=== PATIENT | female | born 1980 | race Caucasian/White ===

== ENCOUNTER → 2017-07-01 | Outpatient (CLI) | payer OTHER ==
[~2017-07-01] MED LIST: ADDERALL XR 1010 MG PO; ADDERALL XR 2020 MG PO; ADIPEX-P37.5 M1 PO; AMITRIPTYLINE H10 M3 PO; ANAPROX; CONTRAVE ER 8-1 EACH PO; FLEXERIL PO; GENTAMICIN SU3 MG/ML OP; MEDROLDOSEPACK PO; MOBIC15 MG PO; NAPROSYN375 MG PO; NOHOMEMEDICATIONS; NORCO 5-325 TA1 EACH PO; ORTHO TRI-CYCL1 EACH PO; TOPAMAX 25 MG T25 M1 PO; WELLBUTRIN SR100 MG PO; muscle relaxer
--- NOTE | 2017-08-04 08:22 | PAINCON ---
[address] [address] PAIN MANAGEMENT CONSULTATION Name: OBDULIORAMON Ruano Room: [facility]#: [id number] Admission: 07/01/17 Attend Phys: Armando Mcpherson MD Discharge: Date of : 76 Report #: [id number] THIS REPORT FOR: //name// CC: ANNA Mcpherson DATE OF SERVICE: 07/01/2017 CHIEF COMPLAINT: "Pain in the low back and down my right leg." HISTORY OF PRESENT ILLNESS: The patient is a 36-year-old female who has been referred to the pain clinic for evaluation of back and leg pain. The patient noticed that her pain has been problematic since approximately 2010. Pain has waxed and waned. At this juncture, she is having pain and discomfort, which is radiating down her right leg. She notes that her leg has some weakness in this area as well as numbness in the top of her foot. She denies any significant trauma in the past. She rates her pain as a 4/10. Notes that it impacts ability to engage in activities. Prolonged walking, moving and activities of daily living can cause worsening of her pain with pain radiating down to her right leg involving her foot, which is numb. States that the numbness in her foot has continued to remain for some time. Has used Naprosyn and Flexeril. She is not taking the Flexeril secondary to increased somnolence effects with its use. She is not taking Naprosyn at this juncture. Has difficulty with performing activities as well as walking. Describes her discomfort as constant, burning, cramping, aching, pulling, sharp and stabbing. Denies any bowel or bladder dysfunction. 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 States that she used to wear high heel shoes. She is unable to wear them and has not worn them for the last greater than the last month because of this chronic pain that she is experiencing. ALLERGIES: No known drug allergies. CURRENT MEDICATIONS: Adderall-XR 20 mg capsules, Adderall-XR 10 mg capsules daily, total dose 30 mg. Wellbutrin-SR 100 mg b.i.d., Contrave ER, naloxone, hydrochloride/bupropion q.12h., Topamax 25 mg b.i.d. PAST MEDICAL HISTORY: 1. Low back pain with radiculopathy involving the right leg. 2. Depression. 3. Obesity, BMI 30-39, takes Contrave 1 p.o. b.i.d. 4. Anxiety. 5. Attention deficit disorder. PAST SURGICAL HISTORY: Breast reduction 2000[place] [address] PAIN MANAGEMENT CONSULTATION Name: VISHNURAMON RAMIREZ Alden Room: [facility]#: [id number] Admission: 07/01/17 Attend Phys: Armando Mcpherson MD Discharge: Date of : 76 Report #: [id number] SOCIAL HISTORY: She is working as a real estate loan processor. Denies use of tobacco. Drinks alcoholic beverages about 1 beverage per week. She is . She has never smoked. PAIN CLINIC ASSESSMENT: 1. History of osteoarthritis: None. 2. History of rheumatoid arthritis: None. 3. Height 5 feet 6 inches, weight 174 pounds, BMI is 38. 4. Vital signs: Blood pressure 102/65, pulse is 77, respiratory rate 16, room air saturation is 97%, temperature 98.7. 5. Pain intensity 09/07. 6. Fall risk: No problem with dizziness, no problem with falling in the last 3 months. No need help standing. 7. The patient is not on blood thinners. 8. History of hypertension: The patient is not being treated for hypertension. 9. Opioid therapy greater than 6 weeks: The patient has not been on opioid therapy for greater than 6 weeks. 10. Risk assessment tool/pain impact score: The patient rates 46 on evaluation of general activity, mood, walking ability, relationships with others, sleep and enjoyment of life. 11. Recreational drugs: Never. Denies use of tobacco ever. REVIEW OF SYSTEMS: A 14-point reveals generally good health, some weight change, fatigue, weakness, wears glasses, otherwise unremarkable. PHYSICAL EXAMINATION: GENERAL: The patient is a well-developed, well-nourished female. Appearance is appropriate, and appears her stated age. Oriented x3, alert. Affect is appropriate. HEENT: Unremarkable. No head trauma. Hearing is good. Eyes, accommodation and eye muscles intact. Nonicteric sclerae. Moist buccal membranes. No nasal complaints. NECK: Without JVD, adenopathy, or bruits. LUNGS: Clear to auscultation. HEART: Regular rate, normal S1, S2. ABDOMEN: Nontender. MUSCULOSKELETAL: Appearance is normal without evidence of scoliosis, kyphosis or lordosis. Gait is within normal limits. BACK EXAMINATION: Flexion to 60 degrees. Some low back discomfort. Lumbar extension, left and right lateral rotation causes some discomfort in the right lower buttocks area. Lateral bending not very problematic. Upper muscle strength is judged to be 5/5 in the upper muscle extremities. Sensation to light touch and pinprick are within normal limits. Lower extremities examination, right leg, right straight leg raise is positive. The patient has some pain, which radiates down the left lower buttocks in the L4-L[place] [address] PAIN MANAGEMENT CONSULTATION Name: RAMON MAK Room: [facility]#: [id number] Admission: 07/01/17 Attend Phys: Armando Mcpherson MD Discharge: Date of : 76 Report #: [id number] with pain down into the calf and numbness in the dorsum of her foot. Anterior spring test is negative. Posterior spring test is negative. Michael's test is negative. No clonus is noted. Deep tendon reflexes are +1 on the left and right. No significant edema is noted in the lower extremities. LABORATORY DATA: MRI of the lumbar spine dated 05/21/2017, reveals: 1. L4-L5 disk desiccation with normal disk height and mild circumferential disk bulge, which abuts the thecal sac anteriorly. Mild bilateral facet arthropathy. The findings produce mild bilateral neural foraminal stenosis without significant central canal stenosis or nerve root compression identified. An annular fissure is suggested anteriorly at the sagittal T2 weighted image #7. 2. L5-S1 disk desiccation with mild disk height loss with a mild circumferential disk bulge, which abuts the thecal sac anteriorly. There is bilateral foraminal components to the disk bulge along with mild bilateral facet arthropathy. The intervertebral disk appear normal from T11/T12 through the L3-L4 levels. No acute compression fracture is identified through T10 down to L5. IMPRESSION: 1. L4-L5 lumbar radicular symptomatology with numbness, weakness involving the right L5-S1 distribution with numbness over the dorsum of her foot. 2. Major depressive disorder. 3. Obesity, BMI is 30-39. 4. History of migraines. 5. Anxiety. 6. Insulin resistance syndrome. 7. Attention deficit disorder. RECOMMENDATIONS: We discussed treatment options with the patient. Risks and benefits of an epidural steroid injection were discussed. The patient brought her MRI disc. It was placed on the computer and we discussed the ramifications of findings. Possible complication of an epidural steroid injection, which could include infection, increased muscle soreness, headache, bleeding, nerve trauma were reviewed. The patient feels that she would like to proceed with an epidural steroid injection. She will return to the pain clinic after she has been precerted by her insurance company. At that time, we will proceed with an epidural steroid injection. The patient's questions were answered. She will continue her medications prescribed by her primary physician. We would like to thank you for letting us participate in her care. We hope she continues to improve. <ELECTRONICALLY SIGNED> By: Armando Mcpehrson MD 08/04/17 0822 [id number]. Joel Mcpherson MD /nt
== END ==
LOC: M.PC 06-10 10:30
DX: M54.16 Radiculopathy, lumbar region (principal); F32.9 Major depressive disorder, single episode, unspecified; E66.9 Obesity, unspecified; F41.9 Anxiety disorder, unspecified; F98.8 Other specified behavioral and emotional disorders with onset usually occurring in childhood and adolescence; Z68.30 Body mass index [BMI] 30.0-30.9, adult

== ENCOUNTER → 2017-07-08 | Outpatient (CLI) | payer OTHER ==
--- NOTE | 2017-08-04 08:26 | PAINCON ---
[address] [address] PAIN MANAGEMENT CONSULTATION Name: VISHNUJAMESRAMON Ruano [id number] Admission: 07/08/17 Attend Phys: Armando Mcpherson MD Discharge: Date of : 76 Report #: [id number] THIS REPORT FOR: //name// CC: Clark Mcpherson DATE OF SERVICE: 07/13/2017 FOLLOWUP COMPLAINT: Here for the epidural steroid injection. FOLLOWUP HISTORY: The patient is a 36-year-old female who has been seen in the Pain Clinic because of back and leg pain. She has had pain, which has been problematic since 2010. She notes that her pain had become more problematic over the last few weeks. It has waxed and waned in the interim. At this juncture, she is having more pain and discomfort, which is radiating down into her right leg. She notes some weakness in this area as well as numbness on the top of her foot. She denies any new changes since we saw her last. She notes that prolonged walking, moving and activities of daily living worsen her pain and discomfort with radiation down into her right leg and involving the dorsum of her foot. Denies any bowel or bladder dysfunction at this juncture. Continues to describe her discomfort as burning, cramping, aching, prolonged pulling, sharp and stabbing. 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 ALLERGIES: No known drug allergies. CURRENT MEDICATIONS: Continue to be Adderall-XR 20 mg, Adderall-XR 10 mg capsules daily; total dose of 30 mg, Wellbutrin-SR 100 mg b.i.d., Contrave ER, naloxone, hydrochlorothiazide/bupropion q.12 hours, and Topamax 25 mg b.i.d. PAST MEDICAL HISTORY: 1. Low back pain with radiation down to the right leg 2. History of depression. 3. Obesity, BMI of 30-39, takes Contrave 1 p.o. b.i.d. for this. 4. Anxiety. 5. Attention deficit disorder. PHYSICAL EXAMINATION: GENERAL: The patient is a well-developed female with no distress. Appearance, appropriate for age. The patient is well kempt. Orientation; the patient is alert and oriented x 3. Affect appears appropriate. HEENT: Normocephalic, atraumatic. The patient wear glasses, hearing is within normal limits. No complaint of sinus problems. Moist buccal membranes. NECK: Without adenopathy or bruits. LUNGS: [place] [address] PAIN MANAGEMENT CONSULTATION Name: VISHNURAMON RAMIREZ Alden Room: [facility]#: [id number] Admission: 07/08/17 Attend Phys: Armando Mcpherson MD Discharge: Date of : 76 Report #: [id number] HEART: Regular rate. ABDOMEN: Nontender without organomegaly. The patient has pain and discomfort radiating down into her right leg with positive straight leg raise. Also, has some pain and discomfort in the right paraspinal muscle area at approximately L5-S1. IMPRESSION: 1. L4-L5 Lumbar radiculopathy with symptomatology with numbness, weakness involving the right L5-S1 nerve distribution as well as pain on the dorsum of her right foot. 2. Major depression disorder. RECOMMENDATIONS: We discussed treatment options with the patient. Risks and benefits of an epidural steroid injection were again reviewed. Possible complications were discussed. The problems could include but are not limited to infection, increased muscle soreness, headache, bleeding, nerve damage and increased muscle soreness or no improvement. The patient elects to proceed. PROCEDURE NOTE: The patient was placed in the prone position. Fluoroscopy was used to identify the target area. Anterior and posterior viewing using fluoroscopy was performed. After appropriate placement, a skin wheal was performed at the L4-L5 interspace on the right. The patient's back had been sterilely prepped with Betadine and infiltrated with additional 0.25% bupivacaine. After appropriate placement, a total of 80 mg triamcinolone and 40 mg of triamcinolone was injected. The patient tolerated the procedure well. There were no complications. She remained in the pain clinic for an appropriate amount of time. Her pain decreased from 8-0 at the time of discharge. Total of 10 seconds fluoroscopy time was used. She will follow up in the future as needed. We would like to thank you for letting us participate in her care. We hope she continues to improve. <ELECTRONICALLY SIGNED> By: Armando Mcpherson MD 08/04/17 0826 [id number]. Joel Mcpherson MD /ashly
== END | disposition home or self-care (01) ==
LOC: M.PC 01:53
DX: M54.16 Radiculopathy, lumbar region (principal); F32.9 Major depressive disorder, single episode, unspecified; E66.09 Other obesity due to excess calories; F41.8 Other specified anxiety disorders; F98.8 Other specified behavioral and emotional disorders with onset usually occurring in childhood and adolescence; Z79.899 Other long term (current) drug therapy; Z68.30 Body mass index [BMI] 30.0-30.9, adult

== ENCOUNTER → 2017-07-29 | Outpatient (CLI) | payer OTHER ==
--- NOTE | 2017-08-04 08:35 | PAINCON ---
[facility] [address] [place] [address] PAIN MANAGEMENT CONSULTATION Name: RAMON MAK Room: [facility]#: [id number] Admission: 07/29/17 Attend Phys: Armando Mcpherson MD Discharge: Date of : 76 Report #: [id number] THIS REPORT FOR: //name// CC: Clark Mcpherson DATE OF SERVICE: 07/29/2017 PRIMARY CARE PHYSICIAN: Clark Wolf M.D. FOLLOWUP COMPLAINT: Continued low back pain. FOLLOWUP HISTORY: The patient is a 36-year-old female who has been seen in the pain clinic because of lumbar radiculopathy. As you recall, she has pain and discomfort which is quite problematic and radiates down into her right leg. This pretty much classic. She describes it as a discomfort with a cramping sensation which radiates down the posterior portion of her leg in the right side. Notes that the pain is worse with activities. Walking, sitting, standing are problematic. Notes that the pain was somewhat improved with use of cold and hot packs, was using Naprosyn, but has run out of that. Has not had a Medrol Dosepak. Rarely uses hydrocodone. Denies any problem with bowel or bladder dysfunction. Continues to have a constant, burning, cramping, aching, pulling, sharp discomfort. ALLERGIES: No known drug allergies. CURRENT MEDICATIONS: Include Adderall- XR 20 mg capsules as well as Adderall-XR 10 mg capsules daily for a total dose of 30. The patient states she has not taken the medication for about a year. Wellbutrin-SR 100 mg b.i.d., Contrave ER, naloxone/bupropion for weight loss, Topamax 25 mg b.i.d. PAIN CLINIC ASSESSMENT: GENERAL: The patient is not being treated for osteoarthritis or rheumatoid arthritis. Height 5 feet, 6 inches, weight 169 pounds, BMI is 27. VITAL SIGNS: Blood pressure 107/67, heart rate 87, respiratory rate 16, room air saturation 100%, temperature 98.1. Pain intensity 01/07. Fall risk: The patient has not fallen. The patient is not on blood thinner. Hypertension. The patient has not been treated for hypertension. Opioid greater than 6 weeks. The patient has not been receiving opioid medications greater than 6 weeks. Risk assessment tool. Functional assessment tool, the patient rate 46 on a schedule a scale of 44. General activity, mood, walking ability, relationships with others, [place] [address] PAIN MANAGEMENT CONSULTATION Name: RAMON MAK Room: [facility]#: [id number] Admission: 07/29/17 Attend Phys: Armando Mcpherson MD Discharge: Date of : 76 Report #: [id number] enjoyment of life. Recreational drugs. The patient has never used them. The patient denies use of tobacco, denies frequent use of alcoholic beverages. PHYSICAL EXAMINATION: GENERAL: The patient is a well-developed female, appears her stated age. Alert and oriented x 3. Affect is appropriate. HEENT: Unremarkable. Head is normocephalic, atraumatic. Extraocular eye muscles intact. Hearing is good. The patient membranes are moist. Denies any nasal complaint. NECK: Without JVD, adenopathy, or bruits. LUNGS: Clear to auscultation. HEART: Regular rate, normal S1, S2. ABDOMEN: Nontender. MUSCULOSKELETAL: Appears within normal limits with no evidence of scoliosis, kyphosis or lordosis. BACK: The patient does have some pain and discomfort in lower portion of her buttocks on the right side. Complains of pain and discomfort, which is radiating down into the right leg with some numbness and weakness. Muscle bulk on the left versus right are symmetrical. Positive straight leg raise on the right. IMPRESSION: 1. L4-L5 lumbar radicular symptomatology with numbness, weakness involving the right L5-S1 and L4-L5 areas. 2. Major depressive disorder. 3. Morbid obesity. BMI is 30 to 39. History of migraines, not problematic at this juncture. 4. History of anxiety. The patient is less anxious. 5. Insulin resistance syndrome. 6. Attention deficit disorder. The patient is not taking the Adderall medication on a regular basis at this juncture. RECOMMENDATIONS: We discussed treatment options with the patient. She continues to have pain and discomfort, which is radiating down into her leg in L4-L5 and L5-S1 dermatomal distribution. I think at this juncture, we will try a conservative approach. The patient will try a nonsteroidal anti-inflammatory medication on a regular basis such as Mobic. She will also try a Medrol Dosepak. She will try Elavil 10 mg at bedtime. Hopefully, this will help with sleep as well as with the pain. She will follow up in the future as needed. Possibility of another epidural steroid injection in the future. [address] [address] PAIN MANAGEMENT CONSULTATION Name: RAMON MAK Room: [facility].#: [id number] Admission: 07/29/17 Attend Phys: Armando Mcpherson MD Discharge: Date of : 76 Report #: [id number] We would like to thank you for letting us participate in her care. We hope she continues to improve. <ELECTRONICALLY SIGNED> By: Armando Mcpherson MD 08/04/17 0835 [id number] [id number] Angel. Joel Mcpherson MD /[facility]
== END ==
LOC: M.PC 02:37
DX: M54.16 Radiculopathy, lumbar region (principal); E88.81 Metabolic syndrome and other insulin resistance; I10 Essential (primary) hypertension; R53.1 Weakness; F32.9 Major depressive disorder, single episode, unspecified; E66.01 Morbid (severe) obesity due to excess calories; F98.8 Other specified behavioral and emotional disorders with onset usually occurring in childhood and adolescence; Z68.39 Body mass index [BMI] 39.0-39.9, adult

== ENCOUNTER → 2019-02-15 | Day surgery (SDC) | payer OTHER ==
[~2019-02-15] MED LIST changes: +COLACE100 MG PO; +OXYCODONE HCL 55 MG PO; +PROBIOTIC1 EAC1 PO
--- NOTE | ~2019-02-15 | OP ---
[address] [address] OPERATIVE REPORT Name: OBDULIORAMON CAMPBELL Room: [facility]..#: [id number] Admission: 02/15/19 Attend Phys: Martha Mortensen DO Discharge: Date of : 76 Report #: [id number] THIS REPORT FOR: //name// CC: Clark Nash DATE OF SERVICE: 02/15/2019 PREOPERATIVE DIAGNOSIS: Left breast pseudoangiomatous stromal hyperplasia x 2. POSTOPERATIVE DIAGNOSIS: Left breast pseudoangiomatous stromal hyperplasia x 2. FINDINGS: Wire localization x 2, labeled superior and inferior. SURGEON: Martha Mortensen DO COSURGEON: Dr. Chayo Garay, PGY2 ANIMAL CARE SERVICE WORKER: MS [id number] PROCEDURE PERFORMED: Left breast wire localized lumpectomy x 2. ANESTHESIA: General, LMA, and local. ESTIMATED BLOOD LOSS: 2 mL. DRAINS: None. SPECIMENS: Wire localized lumpectomy x 2 superior and inferior wire. Stitches are short superior and long lateral. COMPLICATIONS: None. CONDITION: Stable. DISPOSITION: PACU to home. HISTORY OF PRESENT ILLNESS: The patient is a very pleasant 38-year-old female who presented to my office with a complaint of a change in her mammogram in association with increasing left breast pain. She had undergone radiological-guided biopsy of two suspicious areas both of which returned a pseudoangiomatous stromal hyperplasia. She had actually undergone repeat ultrasound, which showed that both areas were increasing in size and again she was having worsening pain. It was then decided to excise these areas using wire localization. Risks discussed included bleeding, infection, pain, scar [address] [address] OPERATIVE REPORT Name: RAMON MAK Room: [facility]..#: [id number] Admission: 02/15/19 Attend Phys: Martha Mortensen DO Discharge: Date of : 76 Report #: [id number] formation, deformation of the breast, need for further surgery and risks of general anesthesia. The patient understood these risks and elected to proceed. DESCRIPTION OF PROCEDURE: The patient initially presented to preop and was taken to Radiology where she underwent left breast wire localization x 2. She returned to preop where she underwent informed consent. She was then taken to the operating room where she was laid supine on the operating room table. SCDs were placed on bilateral lower extremities. Ancef was given in the perioperative period. General LMA anesthesia was induced by Anesthesia without difficulty. The left breast was prepped and draped in standard sterile fashion. Timeout was performed to verify patient and procedure. I began with the superior wire. A 10 mL of 0.5% Marcaine were injected in the area of an old mammoplasty scar. Incision was made with #15 blade. Cautery was used for hemostasis. Then, using the wire for guidance, a lumpectomy specimen was formed. Specimen was marked in the superior and lateral direction and was sent to Radiology. Radiology did return phone call indicating that we had excellent specimens clipped in the wire. We then turned our attention to the inferior wire again 10 mL of 0.5% Marcaine were injected in the area of an old mammoplasty scar. Incision was made with #15 blade. Cautery was used for hemostasis. Wire was used for guidance to create an appropriately sized lumpectomy. Specimen was marked in the superior and lateral direction and returned to Radiology for mammogram. Again Radiology called us and indicated that we had an excellent specimen. Both wounds were then copiously irrigated. Hemostasis was assured. Wounds were then closed in a layered fashion using deep and superficial stitches of 3-0 Vicryl in inverted interrupted fashion. Skin wounds were closed with running 4-0 Monocryl. A total of 30 mL of 0.5% Marcaine were used to anesthetize the wounds. Wounds were then cleansed and covered with Mastisol, Steri-Strips, 4 x 4's, and Tegaderm. The patient was then allowed to awake from anesthesia, was extubated and transported to the recovery room with no further difficulties. Counts were correct x 2 at the conclusion of the case. By: [id number] Mortensen DO /nt
--- NOTE | 2019-02-17 14:07 | PATH ---
[address] [address] PATHOLOGY RPT PROCEDURE Name: BISI MAK Room: [facility]..#: [id number] Admission: 02/15/19 Date of : 76 Discharge: Report #: [id number] Path Case #: [id number] [facility] Accession Number: [id number] . 01 Material submitted: . PART A: breast - LEFT BREAST SUPERIOR WIRE, SHORT STITCH SUPERIOR, LONG STITCH LATERAL. Modifiers: left PART B: breast - LEFT BREAST INFERIOR WIRE, SHORT STITCH SUPERIOR, LONG STITCH LATERAL. Modifiers: left . 01 Clinical history: . Left breast mass . 02 Diagnosis: A. Left breast superior: - Benign breast tissue with prior biopsy site in association with prominent fibrosis, usual ductal epithelial hyperplasia and abundant scattered luminal calcifications, negative for atypia. See comment. (JULIETA/horacio; 02/16/2019) . B. Left breast inferior: - Benign breast tissue with prior biopsy site in association with pseudoangiomatous stromal hyperplasia/prominent fibrosis and with usual ductal epithelial hyperplasia, columnar cell hyperplasia, mild chronic inflammation, incidental 3 mm fibroadenoma and abundant scattered luminal calcifications, negative for atypia. See comment. (JULIETA:wilner; 02/17/2019) LBQ 02/17/2019 1020 Local . 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 . Left breast 0530, 8 cm from nipple: Breast tissue with columnar cell change with atypia, microcalcifications, pseudoangiomatous stromal hyperplasia and stromal fibrosis, negative for malignancy. (Req #[id number]). . No atypia is seen in either of the biopsies. A spring-like metal coil was identified in block A6 during histologic processing. . (JULIETA:wilner/mml; 02/17/2019) . 02 Electronically signed: . Vijay Garcia MD, Pathologist NPI- [id number] [place] [address] PATHOLOGY RPT PROCEDURE Name: BISI MAK Room: [facility] M.R.#: [id number] Admission: 02/15/19 Date of : 76 Discharge: Report #: [id number] Path Case #: [id number] . 01 Gross description: . A. The specimen is received in formalin, labeled "Callie Bisi, left breast superior" and consists of an oriented 16 g lumpectomy specimen with a long stitch lateral, short stitch superior with a metal localization wire protruding from both the superior and inferior aspects. It measures 5.6 cm S-I, 3.3 cm L-M, 1.8 cm A-P, and is inked as follows: superior-blue, inferior-green, medial-red, lateral-yellow, anterior-orange, and posterior-black. It is sectioned from superior to inferior revealing a possible biopsy changes/hemorrhage within dense fibrous tissue. No distinct mass is identified. The specimen comprises of approximately 40% fibrous tissue and 60% yellow lobulated tissue. The specimen is entirely submitted as follows: . A1: Superior, perpendicular A2-A14: Entire mid specimen from superior to inferior A15: Inferior, perpendicular . The specimen was collected at 10:02 AM on 02/15/2019 and placed in formalin at 10:13 AM. The cold ischemic time is 11 minutes and the total formalin fixation time is greater than 6 hours but less than 72 hours. . B. The specimen is received in formalin, labeled "Bisi Mak, left breast inferior" and consists of an oriented 20 g lumpectomy specimen with a long suture lateral, short suture superior and a metal localization wire protruding from both the superior and inferior aspects. It measures 5.6 cm S-I, 4.0 cm L-M, 1.4 cm A-P, and is inked as follows: superior-blue, inferior-green, medial-red, lateral-yellow, anterior-orange, and posterior-black. It is sectioned from superior to inferior revealing markedly fibrotic cut surfaces throughout with scattered hemorrhagic/clots. No distinct mass is identified. The parenchyma comprises of approximately 50% dense fibrous tissue and 50% yellow lobulated tissue. The specimen is entirely submitted as follows: . B1: Superior, perpendicular B2-B16: Entire mid specimen from superior to inferior (B7-B8 bisected full-thickness section B17: Inferior, perpendicular . The specimen was collected at 10:19 AM with no time in formalin provided. The cold ischemic time is unknown and the time out of formalin is 11:50 PM on 02/15/2019. (KRISTIEY; 02/15/2019) /SYU 02/16/2019 1544 Local . 02 Pathologist provided ICD-10: N60.32, N62, N61.0 . 02 CPT . [facility] [address] [place] [address] PATHOLOGY RPT PROCEDURE Name: BISI MAK Room: [facility]..#: [id number] Admission: 02/15/19 Date of : 76 Discharge: Report #: [id number] Path Case #: [id number], [id number] Specimen Comment: A courtesy copy of this report has been sent to Specimen Comment: [phone], , . Specimen Comment: Report sent to ,DR RAMIREZ / DR ALDANA Performed at: 01 [facility] [address], [place] [id number] MD Jose Villagomez MD Phone: [phone] Performed at: 02 [facility] [address] [place] , [place], [place] [id number] MD Vijay Garcia MD Phone: [phone]
== END | disposition home or self-care (01) ==
LOC: M.SUR 07:03 → M.RAD 08:00 → EDSTATUS 08:00 → M.SUR 08:00
DX: N62 Hypertrophy of breast (principal); D24.2 Benign neoplasm of left breast; N61.0 Mastitis without abscess; N60.92 Unspecified benign mammary dysplasia of left breast; N60.32 Fibrosclerosis of left breast; Z98.890 Other specified postprocedural states; Z79.899 Other long term (current) drug therapy